=== PATIENT | female | born 1990 | race American Indian/Alaskan Native ===

== ENCOUNTER 2018-08-18 18:27 | Emergency (ER) | payer OTHER ==
[2018-08-18 18:45] VITALS: BP 130/80
--- NOTE | 2018-08-18 18:47 | Event Note ---
ED Screening Note ED Screening Note: pt presents with cough congestion and sore throat for 3 days states she has had some mucus production with the cough states her right ear feels clogged up no fever no sick contacts LNMP: August 04 states she took theraflu and justino seltzer sinus/congestion PMHx asthma no allergies to meds +marijuana no tobacco use no drinker no other drug use This initial assessment/diagnostic orders/clinical plan/treatment(s) is/are subject to change based on patients health status, clinical progression and re- assessment by fellow clinical providers in the ED. Further treatment and workup at subsequent clinical providers discretion. Patient/guardian urged not to elope from the ED as their condition may be serious if not clinically assessed and managed. Initial orders include: CXR
--- NOTE | 2018-08-18 19:29 | XRay Report ---
CHEST 2 VIEWS INDICATION: cough. COMPARISON: None. FINDINGS: Support devices: None. Heart: Within normal limits. Lungs/Pleura: No acute air space or interstitial disease. No significant pleural effusion. IMPRESSION: No acute findings. Signer Name: Angelito Hutchinson MD Signed: 08/18/2018 7:25 PM Workstation Name: [id number]
--- NOTE | 2018-08-18 20:13 | Emergency Department Report ---
- General Chief Complaint: Upper Respiratory Infection Stated Complaint: EAR PAIN Time Seen by Provider: 08/18/18 18:43 Source: patient Mode of arrival: Ambulatory Limitations: No Limitations - History of Present Illness Initial Comments: Patient is a 28-year-old -Stateless female with no past medical history presents to the ED with complaint of acute onset persistent frontal sinus pressure and headache, nasal and sinus congestion, sore throat, dry cough for the last 5 days, and also severe right ear pain for the last 12 hours. Patient denies fever, chills, nausea, vomiting, dizziness, abdominal pain, chest pain, shortness of breath, dysuria, urinary frequency and urgency and neck pain or vision changes. The patient states that she has been taking [id number] decongestants with no relief. MD Complaint: cough, sore throat, rhinorrhea, nasal congestion, sinus pain, other (RIGHT EAR PAIN) -: Sudden, days(s) (5) Severity scale (0 -10): 7 Quality: sharp, aching Consistency: constant Improves With: nothing Worsens With: nothing Context: sick contacts Associated Symptoms: denies other symptoms, chills, myalgias, headache, rhinorrhea, nasal congestion, sore throat, cough, ear pain. denies: chest pain, shortness of breath, abdominal pain, nausea, vomiting, diarrhea, dysuria, rash, confusion, right sweats, weight loss, epistaxis, hoarseness, other Treatments Prior to Arrival: none - Related Data Previous Rx's Medication Instructions Recorded Last Taken Type Amoxicillin/Potassium Clav 1 each PO Q12H #20 tablet 08/18/18 Unknown Rx [Augmentin 875-125 Tablet] Benzonatate [Tessalon Perles] 100 mg PO Q8HR PRN #30 capsule 08/18/18 Unknown Rx Cetirizine HCl [Zyrtec 10mg tab] 10 mg PO DAILY #30 tablet 08/18/18 Unknown Rx Ibuprofen [Motrin] 800 mg PO Q8HR PRN #20 tablet 08/18/18 Unknown Rx Ofloxacin 0.3% [Floxin 0.3% Otic] 2 drops OT Q6H #5 ml 08/18/18 Unknown Rx Prednisone [predniSONE 10 mg 10 mg PO .TAPER #21 tab.ds.pk 08/18/18 Unknown Rx (6-Day Pack, 21 Tabs)] Allergies Allergy/AdvReac Type Severity Reaction Status Date / Time No Known Allergies Allergy Unverified 08/18/18 18:29 ED Review of Systems ROS: Stated complaint: EAR PAIN Other details as noted in HPI Constitutional: denies: chills, fever Eyes: denies: eye pain, eye discharge, vision change ENT: ear pain (RIGHT), throat pain, congestion Respiratory: cough. denies: shortness of breath, SOB with exertion, wheezing Cardiovascular: denies: chest pain, palpitations Endocrine: no symptoms reported Gastrointestinal: denies: abdominal pain, nausea, diarrhea Genitourinary: denies: urgency, dysuria, discharge Musculoskeletal: denies: back pain, joint swelling, arthralgia Skin: denies: rash, lesions Neurological: headache. denies: weakness, paresthesias Psychiatric: denies: anxiety, depression Hematological/Lymphatic: denies: easy bleeding, easy bruising ED Past Medical Hx - Past Medical History Previous Medical History?: Yes Hx Asthma: Yes - Surgical History Past Surgical History?: Yes Additional Surgical History: tonsillectomy - Social History Smoking Status: Never Smoker Substance Use Type: Alcohol, Marijuana - Medications Home Medications: Home Medications Medication Instructions Recorded Confirmed Last Taken Type Amoxicillin/Potassium Clav 1 each PO Q12H #20 tablet 08/18/18 Unknown Rx [Augmentin 875-125 Tablet] Benzonatate [Tessalon Perles] 100 mg PO Q8HR PRN #30 capsule 08/18/18 Unknown Rx Cetirizine HCl [Zyrtec 10mg tab] 10 mg PO DAILY #30 tablet 08/18/18 Unknown Rx Ibuprofen [Motrin] 800 mg PO Q8HR PRN #20 tablet 08/18/18 Unknown Rx Ofloxacin 0.3% [Floxin 0.3% Otic] 2 drops OT Q6H #5 ml 08/18/18 Unknown Rx Prednisone [predniSONE 10 mg 10 mg PO .TAPER #21 tab.ds.pk 08/18/18 Unknown Rx (6-Day Pack, 21 Tabs)] ED Physical Exam - General Limitations: No Limitations General appearance: alert, in no apparent distress - Head Head exam: Present: atraumatic, normocephalic, normal inspection - Eye Eye exam: Present: normal appearance, PERRL, EOMI. Absent: scleral icterus, conjunctival injection, nystagmus Pupils: Present: normal accommodation - ENT ENT exam: Present: mucous membranes moist, other (Erythematous bulging right tympanic membrane; grossly congested nasal passages and erythematous mildly swollen tonsills) - Neck Neck exam: Present: normal inspection, full ROM, lymphadenopathy. Absent: tenderness - Respiratory Respiratory exam: Present: normal lung sounds bilaterally. Absent: respiratory distress, wheezes, rales, rhonchi, chest wall tenderness, accessory muscle use, decreased breath sounds, prolonged expiratory - Cardiovascular Cardiovascular Exam: Present: normal rhythm, tachycardia, normal heart sounds. Absent: systolic murmur, diastolic murmur, rubs, gallop - GI/Abdominal GI/Abdominal exam: Present: soft, normal bowel sounds. Absent: distended, tenderness, guarding, rebound, hyperactive bowel sounds, hypoactive bowel sounds, organomegaly - Rectal Rectal exam: Present: deferred - Extremities Exam Extremities exam: Present: normal inspection, full ROM, normal capillary refill - Back Exam Back exam: Present: normal inspection, full ROM. Absent: tenderness, CVA tenderness (L), muscle spasm, paraspinal tenderness, vertebral tenderness - Neurological Exam Neurological exam: Present: alert, oriented X3, CN II-XII intact, normal gait, reflexes normal - Psychiatric Psychiatric exam: Present: normal affect, normal mood - Skin Skin exam: Present: warm, dry, intact, normal color. Absent: rash ED Course Vital Signs 08/18/18 18:44 Temperature 98.2 F Pulse Rate 112 H Respiratory 18 Rate Blood Pressure 130/80 O2 Sat by Pulse 96 Oximetry - Reevaluation(s) Reevaluation #1: 08/18/18 20:27 Patient is alert and oriented 3 and is not in distress, but tachycardic in triage and afebrile. Patient was evaluated extensively, and discharged home on medications for acute otitis media, acute pharyngitis and bronchitis and advised to follow-up with her primary care physician in 7-10 days for reevaluation. On reevaluation, tachycardia resolved and patient discharged home and advised to return to the ED immediately if symptoms get worse. ED Medical Decision Making - Medical Decision Making Patient is alert and oriented 3 and is not in distress, but tachycardic in triage and afebrile. Patient was evaluated extensively, and discharged home on medications for acute otitis media, acute pharyngitis and bronchitis and advised to follow-up with her primary care physician in 7-10 days for reevaluation. On reevaluation, tachycardia resolved and patient discharged home and advised to return to the ED immediately if symptoms get worse. - Differential Diagnosis acuet otitis media; acute bronchitis, acute pharyngitis, acute sinusitis Critical care attestation.: If time is entered above; I have spent that time in minutes in the direct care of this critically ill patient, excluding procedure time. ED Disposition Clinical Impression: Acute otitis media with effusion of right ear, Acute upper respiratory infection Acute frontal sinusitis Qualifiers: Recurrence: non-recurrent Qualified Code(s): J01.10 - Acute frontal sinusitis, unspecified Acute pharyngitis Qualifiers: Pharyngitis/tonsillitis etiology: unspecified etiology Qualified Code(s): J02.9 - Acute pharyngitis, unspecified Disposition: TO HOME OR SELFCARE Is pt being admited?: No Does the pt Need Aspirin: No Condition: Stable Instructions: Pharyngitis (ED), Otitis Media (ED), Acute Bronchitis (ED) Additional Instructions: Take medications with food, drink plenty of fluids and follow-up with your primary care physician in 7-10 days for reevaluation. Return to the ED immediately if symptoms get worse. Prescriptions: Amoxicillin/Potassium Clav [Augmentin 875-125 Tablet] 1 each PO Q12H #20 tablet Ofloxacin 0.3% [Floxin 0.3% Otic] 2 drops OT Q6H #5 ml Ibuprofen [Motrin] 800 mg PO Q8HR PRN #20 tablet PRN Reason: Pain , Severe (7-10) Prednisone [predniSONE 10 mg (6-Day Pack, 21 Tabs)] 10 mg PO .TAPER #21 tab.ds.pk Benzonatate [Tessalon Perles] 100 mg PO Q8HR PRN #30 capsule PRN Reason: Cough Cetirizine HCl [Zyrtec 10mg tab] 10 mg PO DAILY #30 tablet Referrals: [facility] MD OTIS [Primary Care Provider] - 3-5 Days Forms: Work/School Release Form(ED) Time of Disposition: 20:13 Print Language: YEMENI
== END 2018-08-18 20:34 | disposition home or self-care (01) ==
LOC: ED 18:27
DX: J01.10 Acute frontal sinusitis, unspecified (principal); H65.91 Unspecified nonsuppurative otitis media, right ear; J06.9 Acute upper respiratory infection, unspecified; J45.909 Unspecified asthma, uncomplicated; F12.90 Cannabis use, unspecified, uncomplicated; Z90.49 Acquired absence of other specified parts of digestive tract; Z79.899 Other long term (current) drug therapy
CPT/HCPCS: 71046; 99283

== ENCOUNTER 2020-02-27 10:11 | Emergency (ER) | payer OTHER ==
[2020-02-27 10:20] VITALS: BP 132/56
[2020-02-27] MEDS ORDERED: diphenhydrAMINE 50 MG/ML VIAL IV ONE (11:50)
[2020-02-27] MEDS ORDERED: KETOROLAC 30 MG/1 ML INJ IV ONE (11:50)
[2020-02-27] MEDS ORDERED: dexAMETHasone 4 MG/ML VIAL IV ONE (11:50)
[2020-02-27] MEDS ORDERED: METOCLOPRAMIDE 10 MG/2 ML INJ IV ONE (11:50)
--- NOTE | 2020-02-27 12:03 | Emergency Department Report ---
ED Headache HPI - General Chief Complaint: Headache Stated Complaint: HEAD PAIN Time Seen by Provider: 02/27/20 11:49 Source: patient - History of Present Illness Initial Comments: The patient was evaluated in the emergency department for symptoms described in the history of present illness. He/she was evaluated in the context of the global COVID-19 pandemic, which necessitated consideration that the patient might be at risk for infection with the virus that causes COVID-19. Institutional protocols and algorithms that pertain to the evaluation of patients at risk for COVID-19 are in a state of rapid change based on information released by regulatory bodies including the CDC and federal and state organizations. These policies and algorithms were followed during the patient's care in the emergency department. Please note that these policies, procedures and recommendations changed on a rapid basis. 29-year-old -[place] female presents to the emergency room for 4-day history of a's headache to the frontal area of her head. Patient states that it is is throbbing. She denies any ear pain or pressure. She states that it feels like a band across her head. Patient denies any photophobia denies any nasal congestion nasal drainage sound phobia. She denies any fever chills no nausea no vomiting no change of vision no chest pain or shortness of breath. Patient states she has had no head injury. She states was taken Tylenol and took Aleve this morning. She states that she does not get headaches often. She denies any new weaknesses no dizziness. Denies any current medications besides albuterol as needed for asthma. She does not have a primary care provider. Has no known drug allergies Timing/Duration: other (4 days) Quality: severe Head Injury Location: frontal Recent Head Trauma: no recent headache/trauma Associated Symptoms: denies symptoms. denies: fatigue, facial pain, fever/chills, loss of consciousness, nausea/vomiting, nasal congestion, nasal drainage, vision changes, weakness Allergies/Adverse Reactions: Allergies No Known Allergies Allergy (Unverified 08/18/18 18:29) Home Medications: Ambulatory Orders Amoxicillin/Potassium Clav [Augmentin 875-125 Tablet] 1 each PO Q12H #20 tablet 08/18/18 Benzonatate [Tessalon Perles] 100 mg PO Q8HR PRN #30 capsule 08/18/18 Cetirizine HCl [Zyrtec 10mg tab] 10 mg PO DAILY #30 tablet 08/18/18 Ibuprofen [Motrin] 800 mg PO Q8HR PRN #20 tablet 08/18/18 Ofloxacin 0.3% [Floxin 0.3% Otic] 2 drops OT Q6H #5 ml 08/18/18 Prednisone [predniSONE 10 mg (6-Day Pack, 21 Tabs)] 10 mg PO .TAPER #21 tab.ds.pk 08/18/18 Butalb/Acetaminophen/Caffeine [Fioricet 50-300-40 mg CAP] 1 cap PO Q8HR PRN #12 cap 02/27/20 ED Review of Systems ROS: Stated complaint: HEAD PAIN Other details as noted in HPI Comment: All other systems reviewed and negative ED Past Medical Hx - Past Medical History Previous Medical History?: Yes Hx Asthma: Yes - Surgical History Past Surgical History?: Yes Additional Surgical History: tonsillectomy - Social History Smoking Status: Never Smoker Substance Use Type: None - Medications Home Medications: Home Medications Medication Instructions Recorded Confirmed Last Taken Type Amoxicillin/Potassium Clav 1 each PO Q12H #20 tablet 08/18/18 Unknown Rx [Augmentin 875-125 Tablet] Benzonatate [Tessalon Perles] 100 mg PO Q8HR PRN #30 capsule 08/18/18 Unknown Rx Cetirizine HCl [Zyrtec 10mg tab] 10 mg PO DAILY #30 tablet 08/18/18 Unknown Rx Ibuprofen [Motrin] 800 mg PO Q8HR PRN #20 tablet 08/18/18 Unknown Rx Ofloxacin 0.3% [Floxin 0.3% Otic] 2 drops OT Q6H #5 ml 08/18/18 Unknown Rx Prednisone [predniSONE 10 mg 10 mg PO .TAPER #21 tab.ds.pk 08/18/18 Unknown Rx (6-Day Pack, 21 Tabs)] Butalb/Acetaminophen/Caffeine 1 cap PO Q8HR PRN #12 cap 02/27/20 Unknown Rx [Fioricet 50-300-40 mg CAP] ED Physical Exam - General Limitations: No Limitations General appearance: alert, in no apparent distress - Head Head exam: Present: atraumatic, normocephalic - Eye Eye exam: Present: normal appearance - ENT ENT exam: Present: mucous membranes moist - Neck Neck exam: Present: normal inspection, full ROM - Respiratory Respiratory exam: Present: normal lung sounds bilaterally. Absent: respiratory distress, accessory muscle use - Cardiovascular Cardiovascular Exam: Present: regular rate, normal rhythm. Absent: systolic murmur, diastolic murmur, rubs, gallop - Extremities Exam Extremities exam: Present: normal inspection, full ROM - Back Exam Back exam: Present: normal inspection, full ROM - Neurological Exam Neurological exam: Present: alert, oriented X3 - Expanded Neurological Exam Expanded Patient oriented to: Present: person, place, time Cranial nerves: EOM's Intact: Normal, Gag Reflex: Normal, Tongue Deviation: Normal, Nystagmus: Normal, Facial Sensation: Normal, Facial Palsy with Forehead Movement: Normal, Facial Palsy without Forehead Movement: Normal Cerebellar function: Finger to Nose: Normal, Heel to Hernandez: Normal, Romberg: Normal Upper motor neuron: Agus Neglect: Normal, Pronator Drift: Normal, Sensory Extinction: Normal Sensory exam: Upper Extremity Light Touch: Normal, Upper Extremity Pin Prick: Normal, Upper Extremity Temperature: Normal, UE 2 Point Discrimination: Normal, Lower Extremity Light Touch: Normal, Lower Extremity Pin Prick: Normal, Lower Extremity Temperature: Normal, LE 2 Point Discrimination: Normal Motor strength exam: RUE: 5, LUE: 5, RLE: 5, LLE: 5 Best Eye Response (Jonathan): (4) open spontaneously Best Motor Response (Jonathan): (6) obeys commands Best Verbal Response (Mimbres): (5) oriented Jonathan Total: 15 - Psychiatric Psychiatric exam: Present: normal affect, normal mood - Skin Skin exam: Present: warm, dry, intact, normal color. Absent: rash ED Course Vital Signs 02/27/20 10:18 Temperature 98.6 F Pulse Rate 87 Respiratory 22 Rate Blood Pressure 132/56 O2 Sat by Pulse 100 Oximetry ED Medical Decision Making - Medical Decision Making 29-year-old -[place] female presents to the emergency room for 4-day history of a's headache to the frontal area of her head. Patient states that it is is throbbing. She denies any ear pain or pressure. She states that it feels like a band across her head. Patient denies any photophobia denies any nasal congestion nasal drainage sound phobia. She denies any fever chills no nausea no vomiting no change of vision no chest pain or shortness of breath. Patient states she has had no head injury. She states was taken Tylenol and took Aleve this morning. She states that she does not get headaches often. She denies any new weaknesses no dizziness. Denies any current medications besides albuterol as needed for asthma. She does not have a primary care provider. Has no known drug allergies Patient placed in IV for IV Toradol 15 mg, Benadryl 25 mg, dexamethasone 10 mg and Reglan 25 mg IV. Critical care attestation.: If time is entered above; I have spent that time in minutes in the direct care of this critically ill patient, excluding procedure time. ED Disposition Clinical Impression: Acute intractable headache, Severely overweight Disposition: DC- TO HOME OR SELFCARE Is pt being admited?: No Does the pt Need Aspirin: No Condition: Stable Instructions: Tension Headache, Adult, [id number], BMI for Adults Additional Instructions: Please take medication as needed for headache. Be sure to increase your water intake. Follow-up with a neurologist if headaches persist. Prescriptions: Butalb/Acetaminophen/Caffeine [Fioricet 50-300-40 mg CAP] 1 cap PO Q8HR PRN #12 cap PRN Reason: Headache Referrals: PRIMARY CAREMD [Primary Care Provider] - 3-5 Days PAULINA MEDINA II, MD [Staff Physician] - 3-5 Days
== END 2020-02-27 13:28 | disposition home or self-care (01) ==
LOC: ED 10:11
DX: E66.3 Overweight (principal); R51.9 Headache, unspecified; J45.909 Unspecified asthma, uncomplicated; Z90.49 Acquired absence of other specified parts of digestive tract; Z79.899 Other long term (current) drug therapy
CPT/HCPCS: 96374; 96375; 99282; J1100; J1200; J1885; J2765

== ENCOUNTER 2020-09-12 14:05 | Emergency (ER) | payer OTHER, SELFPAY ==
[2020-09-12 16:59] VITALS: BP 150/83
--- NOTE | 2020-09-12 18:28 | XRay Report ---
CHEST 2 VIEWS INDICATION: +covid, SOB. COMPARISON: 08/18/2018. FINDINGS: Support devices: None. Heart: Within normal limits. Lungs/Pleura: Mild opacity projects over the inferior aspect of the right hilum. No significant ple ural effusion. IMPRESSION: Right middle lobe pneumonia. Signer Name: Angelito Hutchinson MD Signed: 09/12/2020 6:24 PM Workstation Name: [id number]
[2020-09-12 18:43] LABS: Basophils % (Auto) 0.3 % (0.0-1.8); Hematocrit 36.2 % (30.3-42.9); Hemoglobin 11.7 gm/dl (10.1-14.3); Lymphocytes # (Auto) 3.6 K/mm3 (1.2-5.4); Lymphocytes % (Auto) 51.4 % (13.4-35.0); Mean Corpuscular HGB Conc 32 % (30-34); Mean Corpuscular Volume 76 fl (79-97); Monocytes # (Auto) 0.7 K/mm3 (0.0-0.8); Monocytes % (Auto) 9.5 % (0.0-7.3); Platelet Count 282 K/mm3 (140-440); Red Blood Count 4.74 M/mm3 (3.65-5.03)
[2020-09-12 18:50] LABS: Alanine Aminotransferase 29 units/L (7-56); Albumin 3.9 g/dL (3.9-5); Blood Urea Nitrogen 10 mg/dL (7-17); Hemolysis Index 8
[2020-09-12 18:56] LABS: BUN/Creatinine Ratio 17
[2020-09-12] MEDS ORDERED: MAGNESIUM SULFATE 2 GM/50 ML BAG IV ONE ×2 (20:36→23:00)
[2020-09-12] MEDS ORDERED: LIDOCAINE-MPF (1%) 10 MG/1 ML VIAL 5 ML INFILTRATI ONE ×2 (20:36→23:00)
[2020-09-12] MEDS ORDERED: ALBUTEROL 2.5 MG/3 ML NEBU IH ONE ×2 (20:36→23:00)
[2020-09-12] MEDS ORDERED: IPRATROPIUM 0.02% NEBU 2.5 ML IH ONE ×2 (20:36→23:00)
[2020-09-12] MEDS ORDERED: AZITHROMYCIN/NS 500 MG/250 ML 500 MG/250 ML BAG IV ONE ×2 (20:36→23:00)
--- NOTE | 2020-09-12 20:44 | Emergency Department Report ---
ED General Adult HPI - General Chief complaint: Dyspnea/Respdistress Stated complaint: COVID+ Time Seen by Provider: 09/12/20 19:46 Source: patient Mode of arrival: Ambulatory Limitations: No Limitations - History of Present Illness Initial comments: 30-year-old female patient with history of asthma presents to the emergency department with complaints of cough, shortness of breath, fatigue, and myalgias starting 4 days ago. Patient tested positive for COVID-19 on the day her symptoms began. At first, patient was only experiencing a headache and minimal body aches. Today, she developed cough and shortness of breath. She used her asthma medications at home with limited relief. Patient has previously been hospitalized for her asthma on several occasions but her asthma has been very well controlled for the last 7 years. She has never required mechanical ventilation. Patient endorses tobacco use. No known history of heart problems. Denies fever, chills, abdominal pain, vomiting, diarrhea, syncope, lower extremity swelling. Denies all other complaints at this time. - Related Data Previous Rx's Medication Instructions Recorded Last Taken Type Amoxicillin/Potassium Clav 1 each PO Q12H #20 tablet 08/18/18 Unknown Rx [Augmentin 875-125 Tablet] Benzonatate [Tessalon Perles] 100 mg PO Q8HR PRN #30 capsule 08/18/18 Unknown Rx Cetirizine HCl [Zyrtec 10mg tab] 10 mg PO DAILY #30 tablet 08/18/18 Unknown Rx Ibuprofen [Motrin] 800 mg PO Q8HR PRN #20 tablet 08/18/18 Unknown Rx Ofloxacin 0.3% [Floxin 0.3% Otic] 2 drops OT Q6H #5 ml 08/18/18 Unknown Rx Prednisone [predniSONE 10 mg 10 mg PO .TAPER #21 tab.ds.pk 08/18/18 Unknown Rx (6-Day Pack, 21 Tabs)] Butalb/Acetaminophen/Caffeine 1 cap PO Q8HR PRN #12 cap 02/27/20 Unknown Rx [Fioricet 50-300-40 mg CAP] Amoxicillin/Potassium Clav 2,000 mg PO BID 7 Days tab.er.12h 09/13/20 Unknown Rx [Augmentin XR 1000MG 12HR] Azithromycin [Zithromax TAB] 250 mg PO QDAY 5 Days tablet 09/13/20 Unknown Rx Metoclopramide [Reglan] 10 mg PO TID 7 Days tab 09/13/20 Unknown Rx Allergies Allergy/AdvReac Type Severity Reaction Status Date / Time No Known Allergies Allergy Unverified 08/18/18 18:29 ED Review of Systems ROS: Stated complaint: COVID+ Other details as noted in HPI Other: GENERAL: Positive for fatigue. ENT: Negative for ear pain, difficulty hearing, sore throat, nasal congestion, epistaxis. CARDIOVASCULAR: Negative for chest pain, palpitations, lower extremity swelling. PULMONARY: Positive for cough and shortness of breath. GASTROINTESTINAL: Negative for abdominal pain, nausea, vomiting, diarrhea, constipation. MUSCULOSKELETAL: Positive for myalgias. NEUROLOGICAL: Negative for headache, seizure, syncope, paresthesias, weakness. INTEGUMENTARY: Negative for erythema, rash, diaphoresis, laceration, ecchymosis. HEMATOLOGICAL: Negative for hemoptysis, hematemesis, hematochezia, hematuria. PSYCHIATRIC: Negative for hallucinations, suicidal ideation, homicidal ideation, anxiety, depression. ED Past Medical Hx - Past Medical History Previous Medical History?: Yes Hx Asthma: Yes - Surgical History Past Surgical History?: Yes Additional Surgical History: tonsillectomy - Social History Smoking Status: Never Smoker Substance Use Type: None - Medications Home Medications: Home Medications Medication Instructions Recorded Confirmed Last Taken Type Amoxicillin/Potassium Clav 1 each PO Q12H #20 tablet 08/18/18 Unknown Rx [Augmentin 875-125 Tablet] Benzonatate [Tessalon Perles] 100 mg PO Q8HR PRN #30 capsule 08/18/18 Unknown Rx Cetirizine HCl [Zyrtec 10mg tab] 10 mg PO DAILY #30 tablet 08/18/18 Unknown Rx Ibuprofen [Motrin] 800 mg PO Q8HR PRN #20 tablet 08/18/18 Unknown Rx Ofloxacin 0.3% [Floxin 0.3% Otic] 2 drops OT Q6H #5 ml 08/18/18 Unknown Rx Prednisone [predniSONE 10 mg 10 mg PO .TAPER #21 tab.ds.pk 08/18/18 Unknown Rx (6-Day Pack, 21 Tabs)] Butalb/Acetaminophen/Caffeine 1 cap PO Q8HR PRN #12 cap 02/27/20 Unknown Rx [Fioricet 50-300-40 mg CAP] Amoxicillin/Potassium Clav 2,000 mg PO BID 7 Days tab.er.12h 09/13/20 Unknown Rx [Augmentin XR 1000MG 12HR] Azithromycin [Zithromax TAB] 250 mg PO QDAY 5 Days tablet 09/13/20 Unknown Rx Metoclopramide [Reglan] 10 mg PO TID 7 Days tab 09/13/20 Unknown Rx ED Physical Exam - General Limitations: No Limitations - Other Other exam information: General: Awake and alert. No acute distress. Head: Atraumatic, normocephalic. Eyes: EOMI. Pupils are equal and round. Normal sclera and conjunctiva. ENT: Oral mucosa is moist. Normal pharyngeal exam. Neck: Supple. No lymphadenopathy. Pulmonary: No respiratory distress. Minimal scattered rhonchi bilaterally. No wheezing or stridor. Cardiac: Regular rate and rhythm. Pulses are palpable and equal bilaterally. No lower extremity cyanosis or edema. Skin: Warm and dry. No rashes. Abdomen: Soft, non-tender, non-protuberant. No guarding, rigidity, or rebound. Bowel sounds are normal. No organomegaly or masses noted. Back: Normal alignment. No CVA tenderness. Extremities: Symmetrical. Full range of motion intact. Neurological: Alert and oriented, appropriately interactive, no focal deficits. Psych: Cooperative. Appropriate mood and affect. Speech is evenly metered. Thoughts are logically construed. ED Course Vital Signs 09/12/20 16:57 Temperature 98.3 F Pulse Rate 63 Respiratory 20 Rate Blood Pressure 150/83 O2 Sat by Pulse 100 Oximetry ED Medical Decision Making - Lab Data Result diagrams: 09/12/20 17:59 09/12/20 17:59 - EKG Data 09/12/20 22:18 EKG shows normal sinus rhythm with a ventricular rate of 82 bpm. Normal axis. Normal TN interval. Normal QT interval. Good R wave progression. No ST segment changes. Over read by attending emergency physician, who agrees with this interpretation. - Radiology Data [facility] [address] [place] [address] XRay Report Signed Patient: MARLI LIM MR#: [id number] : 1990 Acct:[id number] Age/Sex: 30 / F ADM Date: 09/12/20 Loc: ED Attending Dr: Ordering Physician: IGLESIA CASTAÑEDA Date of Service: 09/12/20 Procedure(s): XR chest routine 2V Accession Number(s): [id number] cc: IGLESIA CASTAÑEDA Fluoro Time In Minutes: CHEST 2 VIEWS INDICATION: +covid, SOB. COMPARISON: 08/18/2018. FINDINGS: Support devices: None. Heart: Within normal limits. Lungs/Pleura: Mild opacity projects over the inferior aspect of the right hilum. No significant pleural effusion. IMPRESSION: Right middle lobe pneumonia. Signer Name: Angelito Hutchinson MD Signed: 09/12/2020 6:24 PM Workstation Name: [id number] Transcribed By: ROSALIND Dictated By: Angelito Hutchinson MD Electronically Authenticated By: Angelito Hutchinson MD Signed Date/Time: 09/12/201823 DD/ 21 TD/TT: - Medical Decision Making Differential diagnosis including but not limited to: pneumonia, influenza, pertussis, pleural effusion, viral upper respiratory infection, asthma exacerbation, pulmonary embolism Patient presents to the emergency department with signs and/or symptoms that arise low risk clinical suspicion for pulmonary embolism. The patient has none of the following clinical criteria: age >50, heart rate >100, room air O2 saturation <94%, history of DVT/PE, recent trauma/surgery, hemoptysis, exogenous estrogen, or signs/symptoms of DVT. As a result, this patient has very low probability of pulmonary embolism and further testing is not indicated. On reevaluation, patient is stable and symptoms have improved following breathing treatment. She is afebrile, hemodynamically stable, no hypoxia, no respiratory distress. Patient is ambulatory in the emergency department without assistance. Oxygen saturation on room air while ambulating 99%-100%. She is tolerating oral intake without difficulty. Chest x-ray shows right middle lobe pneumonia. Treated with IV Rocephin and IV Zithromax in the emergency department. Labs are unremarkable. No clinical indication for further diagnostic work-up on an emergent basis at this time. Patient is an appropriate candidate for outpatient management per PSI risk stratification score. Due to patient's history of pre-existing asthma, she will be discharged home with prescription for Augmentin and Azithromycin per current IDSA community-acquired pneumonia guidelines. Patient expressed understanding and is agreeable to plan of care. Smoking cessation encouraged. Disease transmission precautions discussed. Strict return precautions provided. Repeat exam is unremarkable and benign. History, exam, diagnostic testing, and current condition do not suggest worrisome pathology to warrant further testing, continued ED treatment, admission, or surgical evaluation at this point. Given the low probability of a significant medical illness, it would be more likely to result in harm than benefit to perform further testing at this stage. Discussed findings, presumptive diagnosis, need for follow-up and specific signs/symptoms that should prompt immediate return to the emergency department. Instructions were explained in detail to the patient in addition to giving written discharge information. Patient expressed understanding and was given the opportunity to ask questions, all of which were satisfactorily answered prior to discharge home. Critical care attestation.: If time is entered above; I have spent that time in minutes in the direct care of this critically ill patient, excluding procedure time. ED Disposition Clinical Impression: COVID-19, History of asthma Community acquired pneumonia Qualifiers: Laterality: right Lung location: middle lobe of lung Qualified Code(s): J18.9 - Pneumonia, unspecified organism Disposition: TO HOME OR SELFCARE Is pt being admited?: No Does the pt Need Aspirin: No Condition: Stable Instructions: Prevent the Spread of COVID-19 if You Are Sick - CDC, Bacterial Pneumonia (ED) Additional Instructions: Take Tylenol every 4 hours and Motrin every 8 hours as needed for pain/fever. Take Augmentin and Azithromycin with food as directed. Increase your dietary intake of probiotic rich foods while taking these med ications. Take Reglan as directed for nausea/vomiting. Gradually advance diet slowly as tolerated. Continue asthma medications as previously prescribed. Rest. Drink plenty of fluids. Wash hands frequently to prevent disease transmission. Do not share food or drinks with others. Please adhere to CDC guidelines regarding isolation precautions. Follow-up with your primary care provider. Call today to schedule an appointment. Return to the emergency department immediately for new or worsening symptoms. Prescriptions: Amoxicillin/Potassium Clav [Augmentin XR 1000MG 12HR] 2,000 mg PO BID 7 Days tab.er.12h Metoclopramide [Reglan] 10 mg PO TID 7 Days tab Azithromycin [Zithromax TAB] 250 mg PO QDAY 5 Days tablet Referrals: BERNIE BAER MD [Staff Physician] - 3-5 Days [facility] [Provider Group] - 3-5 Days Forms: Work/School Release Form(ED) Time of Disposition: 00:56
[2020-09-12] MEDS ORDERED: cefTRIAXone/NS 1 GM/50 ML 1 GM/50 ML BAG IV ONE ×2 (21:00→23:00)
[2020-09-12] MEDS ORDERED: METOCLOPRAMIDE 10 MG/2 ML INJ IV ONE (23:47)
--- NOTE | 2020-09-13 18:09 | Electrocardiograph Report ---
[facility] Test Date: 2020-09-12 Test Time: 21:51:36 Pat Name: MARLI LIM Department: Room: Gender: F Fisher Spear: PRISCILA : 1990 Requested By: RONNIE CANALES Order Number: [id number] Reading MD: Jairo Rooney Measurements Intervals [place] Rate: 82 P: 29 NM: 184 QRS: 55 QRSD: 87 T: 64 QT: 372 QTc: 434 Interpretive Statements Sinus rhythm No previous ECG available for comparison Electronically Signed On 09-13-2020 18:09:32 EDT by Jairo Rooney
== END 2020-09-13 01:50 | disposition home or self-care (01) ==
LOC: ED 14:05
DX: U07.1 COVID-19 (principal); J18.9 Pneumonia, unspecified organism; J45.909 Unspecified asthma, uncomplicated; Z79.899 Other long term (current) drug therapy; Z90.49 Acquired absence of other specified parts of digestive tract
CPT/HCPCS: 36415; 71046; 80053; 83880; 84484; 85025; 93005; 94640; 96365; 96367; 96368; 96375; 99284; J0696; J2765; J3475; J0456

== ENCOUNTER 2021-01-09 11:59 | Emergency (ER) | payer SELFPAY ==
[2021-01-09] MEDS ORDERED: HYOSCYAMINE SUBL 0.125 MG TAB SL ONE (13:02)
[2021-01-09] MEDS ORDERED: METOCLOPRAMIDE 10 MG/2 ML INJ IV ONE (13:02)
[2021-01-09] MEDS ORDERED: SODIUM CHLORIDE 0.9% 1000 ML 1,000 ML IV ONE (13:02)
[2021-01-09] MEDS ORDERED: diphenhydrAMINE 50 MG/ML VIAL IV ONE (13:02)
[2021-01-09] MEDS ORDERED: KETOROLAC 30 MG/1 ML INJ IV ONE (13:02)
--- NOTE | 2021-01-09 13:26 | Emergency Department Report ---
ED General Adult HPI - General Chief complaint: Headache Stated complaint: REAL BAD HEADACHE/ HIGH BLOOD PRESSURE Time Seen by Provider: 01/09/21 12:49 Source: patient Mode of arrival: Ambulatory Limitations: No Limitations - History of Present Illness Initial comments: Patient is a 30-year-old female presents emergency room with complaints of a headache that began last night around 8 PM. She states that she also began having nausea, vomiting, diarrhea. Patient states that yesterday she ate pork and she has not eaten pork in approximately 4 years. She has associated abdominal cramping. She denies any fever, chills, hematochezia, melena, hemate mesis, urinary symptoms. No past medical history. No allergies to medications. Patient states that she was also concerned because she went to the pharmacy yesterday and checked her blood pressure and it was 130 systolic and was advised that that is mildly elevated. Severity scale (0 -10): 10 - Related Data Previous Rx's Medication Instructions Recorded Last Taken Type Amoxicillin/Potassium Clav 1 each PO Q12H #20 tablet 08/18/18 Unknown Rx [Augmentin 875-125 Tablet] Benzonatate [Tessalon Perles] 100 mg PO Q8HR PRN #30 capsule 08/18/18 Unknown Rx Cetirizine HCl [Zyrtec 10mg tab] 10 mg PO DAILY #30 tablet 08/18/18 Unknown Rx Ibuprofen [Motrin] 800 mg PO Q8HR PRN #20 tablet 08/18/18 Unknown Rx Ofloxacin 0.3% [Floxin 0.3% Otic] 2 drops OT Q6H #5 ml 08/18/18 Unknown Rx Prednisone [predniSONE 10 mg 10 mg PO .TAPER #21 tab.ds.pk 08/18/18 Unknown Rx (6-Day Pack, 21 Tabs)] Butalb/Acetaminophen/Caffeine 1 cap PO Q8HR PRN #12 cap 02/27/20 Unknown Rx [Fioricet 50-300-40 mg CAP] Amoxicillin/Potassium Clav 2,000 mg PO BID 7 Days tab.er.12h 09/13/20 Unknown Rx [Augmentin XR 1000MG 12HR] Azithromycin [Zithromax TAB] 250 mg PO QDAY 5 Days tablet 09/13/20 Unknown Rx Metoclopramide [Reglan] 10 mg PO TID 7 Days tab 09/13/20 Unknown Rx Butalb/Acetaminophen/Caffeine 1 cap PO Q8HR PRN #10 cap 01/09/21 Unknown Rx [Fioricet 50-300-40 mg CAP] Hyoscyamine Subl [Levsin Sl 0.125 0.125 mg SL Q6HR PRN #10 tab 01/09/21 Unknown Rx TAB] Ondansetron [Zofran Odt] 4 mg PO Q8HR PRN #10 tab.rapdis 01/09/21 Unknown Rx Allergies Allergy/AdvReac Type Severity Reaction Status Date / Time No Known Allergies Allergy Verified 01/09/21 12:24 ED Review of Systems ROS: Stated complaint: REAL BAD HEADACHE/ HIGH BLOOD PRESSURE Other details as noted in HPI Comment: All other systems reviewed and negative ED Past Medical Hx - Past Medical History Hx Asthma: Yes - Surgical History Additional Surgical History: tonsillectomy - Social History Smoking Status: Never Smoker Substance Use Type: None - Medications Home Medications: Home Medications Medication Instructions Recorded Confirmed Last Taken Type Amoxicillin/Potassium Clav 1 each PO Q12H #20 tablet 08/18/18 01/09/21 Unknown Rx [Augmentin 875-125 Tablet] Benzonatate [Tessalon Perles] 100 mg PO Q8HR PRN #30 capsule 08/18/18 01/09/21 Unknown Rx Cetirizine HCl [Zyrtec 10mg tab] 10 mg PO DAILY #30 tablet 08/18/18 01/09/21 Unknown Rx Ibuprofen [Motrin] 800 mg PO Q8HR PRN #20 tablet 08/18/18 01/09/21 Unknown Rx Ofloxacin 0.3% [Floxin 0.3% Otic] 2 drops OT Q6H #5 ml 08/18/18 01/09/21 Unknown Rx Prednisone [predniSONE 10 mg 10 mg PO .TAPER #21 tab.ds.pk 08/18/18 01/09/21 Unknown Rx (6-Day Pack, 21 Tabs)] Butalb/Acetaminophen/Caffeine 1 cap PO Q8HR PRN #12 cap 02/27/20 01/09/21 Unknown Rx [Fioricet 50-300-40 mg CAP] Amoxicillin/Potassium Clav 2,000 mg PO BID 7 Days tab.er.12h 09/13/20 01/09/21 Unknown Rx [Augmentin XR 1000MG 12HR] Azithromycin [Zithromax TAB] 250 mg PO QDAY 5 Days tablet 09/13/20 01/09/21 Unknown Rx Metoclopramide [Reglan] 10 mg PO TID 7 Days tab 09/13/20 01/09/21 Unknown Rx Butalb/Acetaminophen/Caffeine 1 cap PO Q8HR PRN #10 cap 01/09/21 Unknown Rx [Fioricet 50-300-40 mg CAP] Hyoscyamine Subl [Levsin Sl 0.125 0.125 mg SL Q6HR PRN #10 tab 01/09/21 Unknown Rx TAB] Ondansetron [Zofran Odt] 4 mg PO Q8HR PRN #10 tab.rapdis 01/09/21 Unknown Rx ED Physical Exam - General Limitations: No Limitations General appearance: alert, in no apparent distress - Head Head exam: Present: atraumatic, normocephalic - Eye Eye exam: Present: normal appearance, PERRL, EOMI - ENT ENT exam: Present: mucous membranes moist - Respiratory Respiratory exam: Present: normal lung sounds bilaterally. Absent: respiratory distress, wheezes, rales, rhonchi, stridor, chest wall tenderness, accessory muscle use, decreased breath sounds, prolonged expiratory - Cardiovascular Cardiovascular Exam: Present: regular rate, normal rhythm, normal heart sounds. Absent: systolic murmur, diastolic murmur, rubs, gallop - GI/Abdominal GI/Abdominal exam: Present: soft, normal bowel sounds. Absent: distended, tend erness, guarding, rebound, rigid - Neurological Exam Neurological exam: Present: alert, oriented X3, CN II-XII intact, normal gait. Absent: motor sensory deficit - Psychiatric Psychiatric exam: Present: normal affect, normal mood - Skin Skin exam: Present: warm, dry, intact ED Course Vital Signs 01/09/21 01/09/21 01/09/21 12:27 13:25 16:44 Temperature 98.3 F 98.4 F 97.7 F Pulse Rate 80 66 67 Respiratory 18 12 14 Rate Blood Pressure 152/74 131/85 Blood Pressure 131/85 131/75 [Right] O2 Sat by Pulse 97 100 100 Oximetry ED Medical Decision Making - Lab Data Result diagrams: 01/09/21 13:15 01/09/21 15:16 Lab Results 01/09/21 01/09/21 01/09/21 Range/Units 13:15 13:15 13:15 WBC 12.4 H (4.5-11.0) K/mm3 RBC 4.59 (3.65-5.03) M/mm3 Hgb 10.6 (10.1-14.3) gm/dl Hct 34.5 (30.3-42.9) % MCV 75 L (79-97) fl MCH 23 L (28-32) pg MCHC 31 (30-34) % RDW 18.1 H (13.2-15.2) % Plt Count 373 (140-440) K/mm3 Lymph % (Auto) 23.1 (13.4-35.0) % [place] % (Auto) 2.7 (0.0-7.3) % Eos % (Auto) 0.1 (0.0-4.3) % Baso % (Auto) 0.5 (0.0-1.8) % Lymph # (Auto) 2.9 (1.2-5.4) K/mm3 [place] # (Auto) 0.3 (0.0-0.8) K/mm3 Eos # (Auto) 0.0 (0.0-0.4) K/mm3 Baso # (Auto) 0.1 (0.0-0.1) K/mm3 Seg Neutrophils % 73.6 H (40.0-70.0) % Seg Neutrophils # 9.2 H (1.8-7.7) K/mm3 Sodium 128 L (137-145) mmol/L Potassium Not Reportable Chloride 97.2 L (98-107) mmol/L Carbon Dioxide 22 (22-30) mmol/L Anion Gap Not Reportable BUN 12 (7-17) mg/dL Creatinine 0.6 (0.6-1.2) mg/dL Estimated GFR ml/min BUN/Creatinine Ratio 20 % Glucose Imitation [place] [employer] Calcium 8.7 (8.4-10.2) mg/dL Total Bilirubin 0.30 (0.1-1.2) mg/dL AST (5-40) units/L ALT (7-56) units/L Alkaline Phosphatase 46 (35-129) units/L Total Protein 9.1 H (6.3-8.2) g/dL Albumin 3.9 (3.9-5) g/dL Albumin/Globulin Ratio 0.8 % Lipase 21 (13-60) units/L HCG, Qual Negative (Negative) 01/09/21 Range/Units 15:16 WBC (4.5-11.0) K/mm3 RBC (3.65-5.03) M/mm3 Hgb (10.1-14.3) gm/dl Hct (30.3-42.9) % MCV (79-97) fl MCH (28-32) pg MCHC (30-34) % RDW (13.2-15.2) % Plt Count (140-440) K/mm3 Lymph % (Auto) (13.4-35.0) % [place] % (Auto) (0.0-7.3) % Eos % (Auto) (0.0-4.3) % Baso % (Auto) (0.0-1.8) % Lymph # (Auto) (1.2-5.4) K/mm3 [place] # (Auto) (0.0-0.8) K/mm3 Eos # (Auto) (0.0-0.4) K/mm3 Baso # (Auto) (0.0-0.1) K/mm3 Seg Neutrophils % (40.0-70.0) % Seg Neutrophils # (1.8-7.7) K/mm3 Sodium 139 D (137-145) mmol/L Potassium 4.3 Chloride 103.0 (98-107) mmol/L Carbon Dioxide 23 (22-30) mmol/L Anion Gap 17 BUN 13 (7-17) mg/dL Creatinine 0.5 L (0.6-1.2) mg/dL Estimated GFR > 60 ml/min BUN/Creatinine Ratio 26 % Glucose 105 H Calcium 8.9 (8.4-10.2) mg/dL Total Bilirubin 0.20 (0.1-1.2) mg/dL AST 10 (5-40) units/L ALT 8 (7-56) units/L Alkaline Phosphatase 61 (35-129) units/L Total Protein 8.3 H (6.3-8.2) g/dL Albumin 3.8 L (3.9-5) g/dL Albumin/Globulin Ratio 0.8 % Lipase (13-60) units/L HCG, Qual (Negative) - Medical Decision Making Patient is a 30-year-old female presents emergency room with complaints of a headache that began last night around 8 PM. She states that she also began having nausea, vomiting, diarrhea. Patient states that yesterday she ate pork and she has not eaten pork in approximately 4 years. She has associated abdominal cramping. She denies any fever, chills, hematochezia, melena, hematemesis, urinary symptoms. No past medical history. No allergies to medications. Patient states that she was also concerned because she went to the pharmacy yesterday and checked her blood pressure and it was 130 systolic and was advised that that is mildly elevated. vss. labs with dehydration, mild increased WBC. given meds in the ED with improvement of symptoms, pt states she is feeling much better. She has no abdominal tenderness on exam. she is able to tolerate p.o. intake. No further episodes of vomiting or diarrhea. Given prescription for medication. advised pt Please take medication as prescribed. Increase your water intake. Eat a bland liquid diet and slowly advance her diet as tolerated. Follow-up with your primary care doctor. Return to emergency room for any new or worsening symptoms. Critical care attestation.: If time is entered above; I have spent that time in minutes in the direct care of this critically ill patient, excluding procedure time. ED Disposition Clinical Impression: Nausea vomiting and diarrhea, Dehydration Headache Qualifiers: Headache type: unspecified Headache chronicity pattern: acute headache Intractability: not intractable Qualified Code(s): R51.9 - Headache, unspecified Disposition: 01 HOME / SELF CARE / HOMELESS Is pt being admited?: No Does the pt Need Aspirin: No Condition: Stable Instructions: Viral Gastroenteritis, Adult Additional Instructions: Please take medication as prescribed. Increase your water intake. Eat a bland liquid diet and slowly advance her diet as tolerated. Follow-up with your primary care doctor. Return to emergency room for any new or worsening symptoms. Prescriptions: Butalb/Acetaminophen/Caffeine [Fioricet 50-300-40 mg CAP] 1 cap PO Q8HR PRN #10 cap PRN Reason: headache Hyoscyamine Subl [Levsin Sl 0.125 TAB] 0.125 mg SL Q6HR PRN #10 tab PRN Reason: diarrhea/abdominal cramping Ondansetron [Zofran Odt] 4 mg PO Q8HR PRN #10 tab.rapdis PRN Reason: nausea/vomiting Referrals: PRIMARY CARE, [Primary Care Provider] - 2-3 Days BERNIE BAER MD [Staff Physician] - 2-3 Days [facility] [Provider Group] - 2-3 Days Forms: Work/School Release Form Time of Disposition: 16:30 Print Language: [place]
[2021-01-09 13:52] LABS: Basophils # (Auto) 0.1 K/mm3 (0.0-0.1); Basophils % (Auto) 0.5 % (0.0-1.8); Eosinophils % (Auto) 0.1 % (0.0-4.3); Hematocrit 34.5 % (30.3-42.9); Hemoglobin 10.6 gm/dl (10.1-14.3); Lymphocytes # (Auto) 2.9 K/mm3 (1.2-5.4); Lymphocytes % (Auto) 23.1 % (13.4-35.0); Mean Corpuscular HGB Conc 31 % (30-34); Mean Corpuscular Volume 75 fl (79-97); Monocytes # (Auto) 0.3 K/mm3 (0.0-0.8); Monocytes % (Auto) 2.7 % (0.0-7.3); Platelet Count 373 K/mm3 (140-440); Red Blood Count 4.59 M/mm3 (3.65-5.03); Red Cell Distribution Width 18.1 % (13.2-15.2)
[2021-01-09 14:24] LABS: Albumin 3.9 g/dL (3.9-5); Blood Urea Nitrogen 12 mg/dL (7-17); Calcium 8.7 mg/dL (8.4-10.2); Hemolysis Index 1298
[2021-01-09 14:27] LABS: BUN/Creatinine Ratio 20
[2021-01-09 16:11] LABS: Alanine Aminotransferase 8 units/L (7-56); Albumin 3.8 g/dL (3.9-5); Blood Urea Nitrogen 13 mg/dL (7-17); Calcium 8.9 mg/dL (8.4-10.2); Hemolysis Index 3
[2021-01-09 16:28] LABS: BUN/Creatinine Ratio 26
[2021-01-09 16:45] VITALS: BP 131/75
== END 2021-01-09 16:45 | disposition home or self-care (01) ==
LOC: ED 11:59
DX: E86.0 Dehydration (principal); R51.9 Headache, unspecified
CPT/HCPCS: 36415; 80053; 83690; 84703; 85025; 96361; 96374; 96375; 99283; J1200; J1885; J2765; J7030; Q0162

== ENCOUNTER 2021-11-07 10:43 | Emergency (ER) | payer SELFPAY ==
[2021-11-07 11:12] VITALS: BP 165/79
[2021-11-07] MEDS ORDERED: ALBUTEROL 2.5 MG/3 ML NEBU IH ONE (16:41)
[2021-11-07] MEDS ORDERED: dexAMETHasone 4 MG/ML VIAL IM ONE (16:41)
--- NOTE | 2021-11-07 16:49 | Emergency Department Report ---
ED Shortness of Breath HPI - General Chief Complaint: Upper Respiratory Infection Stated Complaint: CHEST TIGHT Time Seen by Provider: 11/07/21 16:40 Source: patient Mode of arrival: Ambulatory Limitations: No Limitations - History of Present Illness Initial Comments: 31-year-old -[place] female with history of asthma, says that she is having increased shortness of breath wheezing, cough does not resolve with using her inhaler. Denies having any fever chills. has chest pain only when she coughs. MD Complaint: shortness of breath, cough, "asthma attack" -: Gradual Severity: mild Pain Scale: 2 Consistency: constant Improves With: oxygen Worsens With: lying flat, exertion Known History Of: asthma Context: allergen exposure Associated Symptoms: denies other symptoms Treatments Prior to Arrival: none - Related Data Home Oxygen Therapy: No Previous Rx's Medication Instructions Recorded Last Taken Type Amoxicillin/Potassium Clav 1 each PO Q12H #20 tablet 08/18/18 Unknown Rx [Augmentin 875-125 Tablet] Benzonatate [Tessalon Perles] 100 mg PO Q8HR PRN #30 capsule 08/18/18 Unknown Rx Cetirizine HCl [Zyrtec 10mg tab] 10 mg PO DAILY #30 tablet 08/18/18 Unknown Rx Ibuprofen [Motrin] 800 mg PO Q8HR PRN #20 tablet 08/18/18 Unknown Rx Ofloxacin 0.3% [Floxin 0.3% Otic] 2 drops OT Q6H #5 ml 08/18/18 Unknown Rx Prednisone [predniSONE 10 mg 10 mg PO .TAPER #21 tab.ds.pk 08/18/18 Unknown Rx (6-Day Pack, 21 Tabs)] Butalb/Acetaminophen/Caffeine 1 cap PO Q8HR PRN #12 cap 02/27/20 Unknown Rx [Fioricet 50-300-40 mg CAP] Amoxicillin/Potassium Clav 2,000 mg PO BID 7 Days tab.er.12h 09/13/20 Unknown Rx [Augmentin XR 1000MG 12HR] Azithromycin [Zithromax TAB] 250 mg PO QDAY 5 Days tablet 09/13/20 Unknown Rx Metoclopramide [Reglan] 10 mg PO TID 7 Days tab 09/13/20 Unknown Rx Butalb/Acetaminophen/Caffeine 1 cap PO Q8HR PRN #10 cap 01/09/21 Unknown Rx [Fioricet 50-300-40 mg CAP] Hyoscyamine Subl [Levsin Sl 0.125 0.125 mg SL Q6HR PRN #10 tab 01/09/21 Unknown Rx TAB] Ondansetron [Zofran Odt] 4 mg PO Q8HR PRN #10 tab.rapdis 01/09/21 Unknown Rx Fluticasone Propionate [Flovent 12 gm IH DAILY #1 11/07/21 Unknown Rx Hfa] predniSONE [Deltasone] 40 mg PO QDAY #10 tab 11/07/21 Unknown Rx Allergies Allergy/AdvReac Type Severity Reaction Status Date / Time No Known Allergies Allergy Verified 01/09/21 12:24 ED Review of Systems ROS: Stated complaint: CHEST TIGHT Other details as noted in HPI Constitutional: denies: chills, fever Eyes: denies: eye pain, eye discharge, vision change ENT: denies: ear pain, throat pain Respiratory: cough, orthopnea, shortness of breath, wheezing Cardiovascular: denies: chest pain, palpitations Endocrine: no symptoms reported Gastrointestinal: denies: abdominal pain, nausea, diarrhea Genitourinary: denies: urgency, dysuria, discharge Musculoskeletal: denies: back pain, joint swelling, arthralgia Skin: denies: rash, lesions Neurological: denies: headache, weakness, paresthesias Psychiatric: denies: anxiety, depression Hematological/Lymphatic: denies: easy bleeding, easy bruising ED Past Medical Hx - Past Medical History Previous Medical History?: Yes Hx Asthma: Yes - Surgical History Past Surgical History?: No Additional Surgical History: tonsillectomy - Family History Family history: asthma - Social History Smoking Status: Current Some Day Smoker Substance Use Type: None - Medications Home Medications: Home Medications Medication Instructions Recorded Confirmed Last Taken Type Amoxicillin/Potassium Clav 1 each PO Q12H #20 tablet 08/18/18 01/09/21 Unknown Rx [Augmentin 875-125 Tablet] Benzonatate [Tessalon Perles] 100 mg PO Q8HR PRN #30 capsule 08/18/18 01/09/21 Unknown Rx Cetirizine HCl [Zyrtec 10mg tab] 10 mg PO DAILY #30 tablet 08/18/18 01/09/21 Unknown Rx Ibuprofen [Motrin] 800 mg PO Q8HR PRN #20 tablet 08/18/18 01/09/21 Unknown Rx Ofloxacin 0.3% [Floxin 0.3% Otic] 2 drops OT Q6H #5 ml 08/18/18 01/09/21 Unknown Rx Prednisone [predniSONE 10 mg 10 mg PO .TAPER #21 tab.ds.pk 08/18/18 01/09/21 Unknown Rx (6-Day Pack, 21 Tabs)] Butalb/Acetaminophen/Caffeine 1 cap PO Q8HR PRN #12 cap 02/27/20 01/09/21 Unknown Rx [Fioricet 50-300-40 mg CAP] Amoxicillin/Potassium Clav 2,000 mg PO BID 7 Days tab.er.12h 09/13/20 01/09/21 Unknown Rx [Augmentin XR 1000MG 12HR] Azithromycin [Zithromax TAB] 250 mg PO QDAY 5 Days tablet 09/13/20 01/09/21 Unknown Rx Metoclopramide [Reglan] 10 mg PO TID 7 Days tab 09/13/20 01/09/21 Unknown Rx Butalb/Acetaminophen/Caffeine 1 cap PO Q8HR PRN #10 cap 01/09/21 Unknown Rx [Fioricet 50-300-40 mg CAP] Hyoscyamine Subl [Levsin Sl 0.125 0.125 mg SL Q6HR PRN #10 tab 01/09/21 Unknown Rx TAB] Ondansetron [Zofran Odt] 4 mg PO Q8HR PRN #10 tab.rapdis 01/09/21 Unknown Rx Fluticasone Propionate [Flovent 12 gm IH DAILY #1 11/07/21 Unknown Rx Hfa] predniSONE [Deltasone] 40 mg PO QDAY #10 tab 11/07/21 Unknown Rx ED Physical Exam - General Limitations: No Limitations General appearance: alert, in no apparent distress - Head Head exam: Present: atraumatic, normocephalic - Eye Eye exam: Present: normal appearance - ENT ENT exam: Present: normal exam, normal orophraynx, mucous membranes moist - Neck Neck exam: Present: normal inspection - Respiratory Respiratory exam: Present: respiratory distress, wheezes - Cardiovascular Cardiovascular Exam: Present: regular rate, normal rhythm. Absent: systolic murmur, diastolic murmur, rubs, gallop - GI/Abdominal GI/Abdominal exam: Present: soft, normal bowel sounds - Extremities Exam Extremities exam: Present: normal inspection - Back Exam Back exam: Present: normal inspection - Neurological Exam Neurological exam: Present: alert, oriented X3 - Psychiatric Psychiatric exam: Present: normal affect, normal mood - Skin Skin exam: Present: warm, dry, intact, normal color. Absent: rash ED Course Vital Signs 11/07/21 11/07/21 11:07 17:07 Temperature 97.9 F Pulse Rate 88 Pulse Rate [ 89 Bilateral] Respiratory 16 Rate Respiratory 16 Rate [Bilateral ] Blood Pressure 165/79 [Right] O2 Sat by Pulse 98 Oximetry Critical care attestation.: If time is entered above; I have spent that time in minutes in the direct care of this critically ill patient, excluding procedure time. ED Disposition Clinical Impression: Acute asthma exacerbation Qualifiers: Asthma severity: moderate Asthma persistence: unspecified Qualified Code(s): J45.901 - Unspecified asthma with (acute) exacerbation Disposition: 01 HOME / SELF CARE / HOMELESS Is pt being admited?: No Does the pt Need Aspirin: No Condition: Stable Instructions: Asthma, Adult, Bronchospasm, Adult, Asthma Attack Prescriptions: predniSONE [Deltasone] 40 mg PO QDAY #10 tab Fluticasone Propionate [Flovent Hfa] 12 gm IH DAILY #1 Referrals: PRIMARY MD CRISTINE [Primary Care Provider] - 3-5 Days DEMETRIUS SIMS MD [Referring] - 3-5 Days
== END 2021-11-07 19:11 | disposition home or self-care (01) ==
LOC: ED 10:43
DX: J45.901 Unspecified asthma with (acute) exacerbation (principal); F17.200 Nicotine dependence, unspecified, uncomplicated; Z90.49 Acquired absence of other specified parts of digestive tract; Z98.890 Other specified postprocedural states; Z79.899 Other long term (current) drug therapy
CPT/HCPCS: 94640; 96372; 99282; J1100; 94644